=== PATIENT | female | born 1985 | race Caucasian/White ===

== ENCOUNTER 2016-10-30 23:01 | Emergency (ER) | payer OTHER ==
[~2016-10-30] VITALS: Ht 160 cm; Wt 63.5 kg
[~2016-10-30 23:01] MED LIST: DIPH25CA58 PO; PRED50TA PO; RANI150T6 PO
[2016-10-30 23:10] VITALS: BP 126/79
[2016-10-30] MEDS ORDERED: PRED20TA PO (23:26)
[2016-10-30] MEDS: DEXAMETHASONE SOD PHOS 10 MG/ML VIAL IM ONE (23:40)
--- NOTE | 2016-10-31 00:28 | ED.ADGEN ---
Past History Past Medical History: Sinusitis Past Surgical History: No Surgical History Alcohol Use: Rarely Drug Use: None Adult General HPI HPI Patient is a 31-year-old female presents emergency department after exposure to an epoxy on PERRLA tape. Patient is a known epoxy allergy. She states that she began to develop hives in the back of her neck shortly after the exposure. She took 2 Benadryl and his had no other symptoms since that time. Review of Systems Review of Systems Constitutional: Denies fever or chills [] Eyes: Denies change in visual acuity, redness, or eye pain [] HENT: Denies nasal congestion or sore throat [] Respiratory: Denies cough or shortness of breath [] Cardiovascular: No additional information not addressed in HPI [] GI: Denies abdominal pain, nausea, vomiting, bloody stools or diarrhea [] : Denies dysuria or hematuria [] Musculoskeletal: Denies back pain or joint pain [] Integument: Denies rash or skin lesions [] Neurologic: Denies headache, focal weakness or sensory changes [] Endocrine: Denies polyuria or polydipsia [] Current Medications Current Medications Current Medications Medications (Trade) Dose Ordered Sig/Gabrielle Start Time Stop Time Status Last Admin Dose Admin Dexamethasone Sodium Phosphate (Decadron) 10 mg 1X ONCE 10/30/16 23:45 10/30/16 23:46 DC 10/30/16 23:40 10 MG Allergies Allergies Allergies Coded Allergies Type Severity Reaction Last Updated Verified Sulfa (Sulfonamide Antibiotics) Allergy Severe Unknown 11/02/15 Yes Physical Exam Physical Exam Constitutional: Well developed, well nourished, no acute distress, non-toxic appearance. [] HENT: Normocephalic, atraumatic, bilateral external ears normal, oropharynx moist, no oral exudates, nose normal. [] Eyes: PERRLA, EOMI, conjunctiva normal, no discharge. [] Neck: Normal range of motion, no tenderness, supple, no stridor. [] Cardiovascular:Heart rate regular rhythm, no murmur [] Lungs & Thorax: Bilateral breath sounds clear to auscultation [] Abdomen: Bowel sounds normal, soft, no tenderness, no masses, no pulsatile masses. [] Skin: Warm, dry, no erythema, no rash. [] Back: No tenderness, no CVA tenderness. [] Extremities: No tenderness, no cyanosis, no clubbing, ROM intact, no edema. [] Neurologic: Alert and oriented X 3, normal motor function, normal sensory function, no focal deficits noted. [] Psychologic: Affect normal, judgement normal, mood normal. [] EKG EKG [] Radiology/Procedures Radiology/Procedures [] Course & Med Decision Making Course & Med Decision Making Pertinent Labs and Imaging studies reviewed. (See chart for details) Patient looks fairly well here in emergency department but noted ahead off any further reaction we did give her dose of Decadron. He will also be placed on steroids for the next several days will follow with her doctor as needed. She does have a prescription for EpiPen which she has yet to fill but tells me that she will do soon. [] Final Impression Final Impression Urticaria, allergic reaction [] Problems: Dragon Disclaimer Dragon Disclaimer This electronic medical record was generated, in whole or in part, using a voice recognition dictation system. JOHN GUERRA MD Oct 31, 2016 00:28
== END 2016-10-30 23:43 | disposition home or self-care (01) ==
LOC: ER 23:01
DX: L50.9 Urticaria, unspecified (principal); T78.49XA Other allergy, initial encounter; Z88.2 Allergy status to sulfonamides; X58.XXXA Exposure to other specified factors, initial encounter
CPT/HCPCS: 96372; 99283; J1100

== ENCOUNTER → 2016-12-03 | Outpatient (CLI) | payer BC, OTHER ==
[~2016-12-03] MED LIST changes: +PRED20TA PO
--- NOTE | 2016-12-03 11:14 | RAD ---
Right upper quadrant abdominal ultrasound History: Hemangioma. Comparison: Ultrasound abdomen 11/18/2011. Technique: Transabdominal ultrasound images are obtained. Findings: Visualized pancreas is unremarkable. Liver is normal in echogenicity. The liver again demonstrates a small mildly hyperechoic mass which measures 2.4 x 2.1 x 1.3 cm (previously 2.7 x 1.0 x 2.5 cm), unchanged. Gallbladder is without evidence of stone. There are a few small echogenic foci adherent to the wall measuring up to 3 mm, compatible with gallbladder polyps; given size, no dedicated follow-up is required. Common bile duct measures normally at 3 mm in diameter. The right kidney measures 11.1 cm in length and is without evidence of obstruction or stone. Visualized portions of the IVC have normal caliber. Impression: 1. Small mildly hyperechoic mass is again seen in the liver which is unchanged. Given patient's age, this is likely a benign entity such as hemangioma or focal fatty infiltration. 2. Very small gallbladder polyps.
== END | disposition home or self-care (01) ==
LOC: US 09:49
PROVIDERS: ATTEND Nurse Practitioner Family
DX: K82.4 Cholesterolosis of gallbladder (principal); D18.09 Hemangioma of other sites; R16.0 Hepatomegaly, not elsewhere classified
CPT/HCPCS: 76705

== ENCOUNTER 2018-09-11 21:54 | Emergency (ER) | payer OTHER ==
[~2018-09-11 21:54] MED LIST changes: +RANI150T21 PO; -RANI150T6 PO
--- NOTE | 2018-09-11 22:00 | ED.ADGEN ---
Past History Past Medical History: No Pertinent History Past Surgical History: No Surgical History Alcohol Use: None Drug Use: None Adult General Chief Complaint Chief Complaint ".. I am very allergic to glue ...hydrocarbons... I walked through my dad 's garage... and now I am wheezing.. rash... 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 Pt. has long hx of sensitivities with glue products that contain ethanediamine, silane, bis sebacate, decanedioic acid adhesives. (Gorilla glue, instant epoxies, commercial super glues etc).,. Pt. had multiple ED visit with severe on set Hive with minor exposure to these hydrocarbons. Pt. has extensive hives currently and wheezing. Pt. denies any changes in food or other possible exposures. Pt. has taken Benadryl at home. 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 No recent travel. No history immunosuppression. Patient does have albuterol at home. Review of Systems Review of Systems Constitutional: Denies fever or chills [] Eyes: Denies change in visual acuity, redness, or eye pain [] HENT: Denies nasal congestion or sore throat [] Respiratory: Wheezes Cardiovascular: No additional information not addressed in HPI [] GI: Denies abdominal pain, nausea, vomiting, bloody stools or diarrhea [] : Denies dysuria or hematuria [] Musculoskeletal: Denies back pain or joint pain [] Integument: Extensive hives Neurologic: Denies headache, focal weakness or sensory changes [] Endocrine: Denies polyuria or polydipsia [] All other systems were reviewed and found to be within normal limits, except as documented in this note. Family History Family History Noncontributory Current Medications Current Medications Current Medications Medications (Trade) Dose Ordered Sig/Gabrielle Start Time Stop Time Status Last Admin Dose Admin Albuterol Sulfate (Ventolin Hfa Inhaler) 60 puff STK-MED ONCE 09/11/18 22:10 09/11/18 22:13 DC Albuterol/ Ipratropium (Duoneb) 3 ml STK-MED ONCE 09/11/18 22:10 09/11/18 22:12 DC Doxepin HCl (SINEquan) 50 mg 1X ONCE 09/11/18 23:00 09/11/18 23:01 DC 09/11/18 22:49 50 MG Famotidine (Pepcid Vial) 20 mg 1X ONCE 09/11/18 22:15 09/11/18 22:17 DC 09/11/18 22:11 20 MG Methylprednisolone Acetate (DEPO-Medrol IM) 40 mg 1X ONCE 09/11/18 22:15 09/11/18 22:17 DC 09/11/18 22:11 40 MG See nursing for home meds Allergies Allergies Allergies Coded Allergies Type Severity Reaction Last Updated Verified Sulfa (Sulfonamide Antibiotics) Allergy Severe 09/11/18 Yes Physical Exam Physical Exam Constitutional: in acute distress, non-toxic appearance. [] HENT: Normocephalic, atraumatic, bilateral external ears normal, oropharynx moist, no oral exudates, nose normal. [] Eyes: PERRLA, EOMI, conjunctiva normal, no discharge. [] Neck: Normal range of motion, no tenderness, supple, no stridor. [] Cardiovascular: Tachycardia Heart rate regular rhythm, no murmur [] Lungs & Thorax: Bilateral breath sounds equal at apex with scattered wheezes on auscultation [] Abdomen: Bowel sounds normal, soft, no tenderness, no masses, no pulsatile masses. [] Skin: Warm, dry, extensive hives Back: No tenderness, no CVA tenderness. [] Extremities: No tenderness, no cyanosis, no clubbing, ROM intact, no edema. [] Neurologic: Alert and oriented X 3, normal motor function, normal sensory function, no focal deficits noted. [] Psychologic: Affect normal, judgement normal, mood normal. [] Current Patient Data Vital Signs Vital Signs Date Time Temp Pulse Resp B/P (MAP) Pulse Ox O2 Delivery O2 Flow Rate FiO2 09/11/18 22:03 98.5 121 20 95 Room Air EKG EKG [] Radiology/Procedures Radiology/Procedures [] Course & Med Decision Making Course & Med Decision Making Pertinent Labs and Imaging studies reviewed. (See chart for details) Take Zantac 150 twice a day. Take Benadryl 50 mg up 4 times a day. Use MDI 2 puffs 4 times a day or albuterol tx's. Follow-up primary care. Return if any concerns. For severe itching take Doxepin 50 up to 4 x day. This drug can be very sedating. Pt. at time discharge reports marked improvement. Sister will stay with her tonight. Return if any concerns. Follow up with primary. [] Final Impression Final Impression 1. Allergic reaction[]- Hydrocarbons- in epoxies. Dragon Disclaimer Dragon Disclaimer This electronic medical record was generated, in whole or in part, using a voice recognition dictation system. [employer] Disclaimer This chart was dictated in whole or in part using Voice Recognition software in a busy, high-work load, and often noisy Emergency Department environment. It may contain unintended and wholly unrecognized errors or omissions. 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 Hx. allergy to epoxy. Discharge Information Condition at Discharge: Improved, Stable Disposition/Orders: D/C to Home Dischare Medications Current Medications Methylprednisolone Acetate (DEPO-Medrol IM) 40 mg 1X ONCE IM Last administered on 09/11/18at 22:11; Admin Dose 40 MG; Start 09/11/18 at 22:15; Stop 09/11/18 at 22:17; Status DC Albuterol Sulfate (Ventolin Hfa Inhaler) 2 puff 1X ONCE INH ; Start 09/11/18 at 22:30; Stop 09/11/18 at 22:31; Status DC Albuterol/ Ipratropium (Duoneb) 3 ml 1X ONCE NEB Last administered on at 22:17; Admin Dose 3 ML; Start 09/11/18 at 22:30; Stop 09/11/18 at 22:31; Status DC Famotidine (Pepcid Vial) 20 mg 1X ONCE IVP Last administered on 09/11/18at 22:11 ; Admin Dose 20 MG; Start 2/2/19 at 22:15; Stop 09/11/18 at 22:17; Status DC Albuterol/ Ipratropium (Duoneb) 3 ml STK-MED ONCE .ROUTE ; Start 09/11/18 at 22: 10; Stop 09/11/18 at 22:12; Status DC Albuterol Sulfate (Ventolin Hfa Inhaler) 60 puff STK-MED ONCE .ROUTE ; Start 09/11/18 at 22:10; Stop 09/11/18 at 22:13; Status DC Doxepin HCl (SINEquan) 50 mg 1X ONCE PO Last administered on 09/11/18at 22:49; Admin Dose 50 MG; Start 09/11/18 at 23:00; Stop 09/11/18 at 23:01; Status DC Active Scripts Active Doxepin Hcl 50 Mg Capsule 50 Mg PO QIDPRN PRN Epipen 2-Erwin (Epinephrine) 0.3 Mg/0.3 Ml Auto.injct 0.3 Mg IJ PREOP 1X PRN Zantac (Ranitidine Hcl) 150 Mg Tablet 150 Mg PO BID 30 Days Prednisone 20 Mg Tablet 1 Tab PO BID Prednisone 50 Mg Tablet 1 Tab PO DAILY Zantac (Ranitidine Hcl) 150 Mg Tablet 150 Mg PO BID Reported Benadryl (Diphenhydramine Hcl) 25 Mg Capsule 50 Mg PO 1X PRN No Known Medications Prior To Admisstion (Info) Each 1 Each NEMO CAPPS MD Sep 11, 2018 22:00
[2018-09-11 22:03] VITALS: BP 142/94
[2018-09-11] MEDS ORDERED: ALBUTEROL SULFATE 8GM INHALER. ONE (22:10)
[2018-09-11] MEDS ORDERED: IPRATRPIUM/ALBUTEROL 0.5/2.5MG 3 ML NEBU. ONE (22:10)
[2018-09-11] MEDS ORDERED: methylPREDNISolone ACETATE 40 MG/ML VIAL. IM ONE (22:15)
[2018-09-11] MEDS ORDERED: FAMOTIDINE 20 MG/2 ML VIAL IVP ONE (22:15)
[2018-09-11] MEDS ORDERED: EPIN0.3A4 IJ (22:27)
[2018-09-11] MEDS ORDERED: RANI150T21 PO (22:27)
[2018-09-11] MEDS ORDERED: ALBUTEROL SULFATE 8GM INHALER. INH ONE (22:30)
[2018-09-11] MEDS ORDERED: IPRATRPIUM/ALBUTEROL 0.5/2.5MG 3 ML NEBU. NEB ONE (22:30)
[2018-09-11] MEDS ORDERED: DOXEPIN HCL 25 MG CAPSULE PO ONE (23:00)
[2018-09-11] MEDS ORDERED: DOXE50CA PO (23:01)
== END 2018-09-11 23:08 | disposition home or self-care (01) ==
LOC: ER 21:54
DX: T78.49XA Other allergy, initial encounter (principal); T50.995A Adverse effect of other drugs, medicaments and biological substances, initial encounter; Z88.2 Allergy status to sulfonamides; Y92.59 Other trade areas as the place of occurrence of the external cause
CPT/HCPCS: 94640; 96372; 96374; 99283; J1030; J3490; J7620

== ENCOUNTER → 2018-12-13 | Outpatient (CLI) | payer OTHER ==
[~2018-12-13] MED LIST changes: +DOXE50CA PO; +EPIN0.3A4 IJ
[2018-12-13 16:29] LABS: BASO # 0.1 x10^3/uL (0.0-0.2); BASO % 1 % (0-3); EOS # 0.1 x10^3/uL (0.0-0.7); EOS % 1 % (0-3); HEMATOCRIT 44.7 % (36.0-47.0); HEMOGLOBIN 15.3 g/dL (12.0-15.5); LYMPH # 2.1 x10^3/uL (1.0-4.8); LYMPH % 21 % (24-48); MEAN CORPUSCULAR HEMOGLOBIN 31 pg (25-35); MEAN CORPUSCULAR HGB CONC 34 g/dL (31-37); MEAN CORPUSCULAR VOLUME 91 fL (79-100); MONO # 0.6 x10^3/uL (0.0-1.1); MONO % 6 % (0-9); NEUT # 7.2 x10^3uL (1.8-7.7); NEUT % 72 % (31-73); PLATELET COUNT 353 x10^3/uL (140-400); RED BLOOD COUNT 4.94 x10^6/uL (3.50-5.40); RED CELL DISTRIBUTION WIDTH 12.9 % (11.5-14.5)
[2018-12-13 16:39] LABS: ALBUMIN 4.2 g/dL (3.4-5.0); CALCIUM 9.4 mg/dL (8.5-10.1); CREATININE 0.7 mg/dL (0.6-1.0); GFR 96.4; POTASSIUM 3.8 mmol/L (3.5-5.1); TOTAL BILIRUBIN 0.2 mg/dL (0.2-1.0)
[2018-12-13 16:58] LABS: ALBUMIN/GLOBULIN RATIO 1.1 (1.0-1.7)
[2018-12-13 17:32] LABS: SEDIMENTATION RATE 3 (0-25)
[2018-12-14 14:31] LABS: FREE T4 1.04 ng/dL (0.76-1.46); THYROID STIM HORMONE (TSH) 0.809 uIU/mL (0.358-3.740)
[2018-12-15 16:08] LABS: ANA INTERP Negative (.)
== END | disposition home or self-care (01) ==
LOC: PMG 15:44
PROVIDERS: ATTEND Physician Assistant Medical
DX: Z01.419 Encounter for gynecological examination (general) (routine) without abnormal findings (principal); T78.40XA Allergy, unspecified, initial encounter; F32.9 Major depressive disorder, single episode, unspecified; F90.9 Attention-deficit hyperactivity disorder, unspecified type
CPT/HCPCS: 36415; 80053; 84439; 84443; 84481; 85025; 85651; 86038

== ENCOUNTER 2019-07-03 10:42 | Emergency (ER) | payer BC, OTHER ==
[~2019-07-03 10:42] MED LIST changes: +RANI-376 PO; -RANI150T21 PO
[2019-07-03] MEDS ORDERED: IV NORMAL SALINE 1,000ML 1,000 ML IV SCH (10:51)
[2019-07-03] MEDS ORDERED: methylPREDNISolone SOD SUCC PF 125 MG/2 ML VIAL. IV ONE (11:00)
[2019-07-03] MEDS ORDERED: FAMOTIDINE 20 MG/2 ML VIAL IVP ONE (11:00)
[2019-07-03] MEDS ORDERED: diphenhydrAMINE 50 MG/ML VIAL IV ONE (11:00)
[2019-07-03 11:16] VITALS: BP 118/95
[2019-07-03 11:19] LABS: BASO # 0.1 x10^3/uL (0.0-0.2); BASO % 1 % (0-3); EOS # 0.1 x10^3/uL (0.0-0.7); EOS % 1 % (0-3); HEMATOCRIT 45.9 % (36.0-47.0); HEMOGLOBIN 15.5 g/dL (12.0-15.5); LYMPH % 23 % (24-48); MEAN CORPUSCULAR HEMOGLOBIN 31 pg (25-35); MEAN CORPUSCULAR HGB CONC 34 g/dL (31-37); MEAN CORPUSCULAR VOLUME 91 fL (79-100); MONO % 8 % (0-9); NEUT % 68 % (31-73); PLATELET COUNT 404 x10^3/uL (140-400); RED BLOOD COUNT 5.08 x10^6/uL (3.50-5.40); RED CELL DISTRIBUTION WIDTH 12.9 % (11.5-14.5); WHITE BLOOD COUNT 13.2 x10^3/uL (4.0-11.0)
[2019-07-03 11:34] LABS: ALBUMIN 4.2 g/dL (3.4-5.0); ALBUMIN/GLOBULIN RATIO 1.2 (1.0-1.7); CALCIUM 8.9 mg/dL (8.5-10.1); CREATININE 0.8 mg/dL (0.6-1.0); GFR 82.6; TOTAL BILIRUBIN 0.5 mg/dL (0.2-1.0); TOTAL PROTEIN 7.7 g/dL (6.4-8.2)
[2019-07-03] MEDS ORDERED: METH4TAB2 PO (12:14)
--- NOTE | 2019-07-03 12:14 | PHYS DOC ---
Past History Past Medical History: Cancer Past Surgical History: Cancer Surgery Alcohol Use: None Drug Use: None Adult General Chief Complaint Chief Complaint: ALLERGIC REACTION HPI HPI Patient is a 33-year-old female who presents with report of allergic reaction. Patient states that she has had similar reactions in the past but she has never been able to identify the cause. She does indicate that she has an EpiPen but has not taken it. She states that symptoms started approximately 30 minutes ago and states that it started with a rash and now she feels like she has a sore throat and is getting some shortness of breath/difficulty breathing. She denies any chest pain. She does indicate that she has itching all over.[] Review of Systems Review of Systems Constitutional: Denies fever or chills [] HENT: Positive dysphagia and sore throat [] Respiratory: Complains of shortness of breath [] Cardiovascular: No additional information not addressed in HPI [] Musculoskeletal: Denies back pain or joint pain [] Integument: Positive urticarial rash[] Neurologic: Denies headache, focal weakness or sensory changes [] Current Medications Current Medications Current Medications Medications (Trade) Dose Ordered Sig/Gabrielle Start Time Stop Time Status Last Admin Dose Admin Diphenhydramine HCl (Benadryl) 50 mg 1X ONCE 07/03/19 11:00 07/03/19 11:01 DC 07/03/19 11:04 50 MG Epinephrine HCl (EPINEPHrine AMPULE) 0.3 mg 1X ONCE 07/03/19 11:00 07/03/19 11:01 DC 07/03/19 11:05 0.3 MG Famotidine (Pepcid Vial) 20 mg 1X ONCE 07/03/19 11:00 07/03/19 11:01 DC 07/03/19 11:04 20 MG Methylprednisolone Sodium Succinate (SOLU-Medrol 125MG VIAL) 125 mg 1X ONCE 07/03/19 11:00 07/03/19 11:01 DC 07/03/19 11:04 125 MG Sodium Chloride 1,000 ml @ 1,000 mls/hr Q1H 07/03/19 10:51 07/03/19 11:50 DC 07/03/19 11:05 1,000 MLS/HR Allergies Allergies Allergies Coded Allergies Type Severity Reaction Last Updated Verified Sulfa (Sulfonamide Antibiotics) Allergy Severe 09/11/18 Yes Physical Exam Physical Exam Constitutional: Well developed, well nourished, no acute distress, non-toxic appearance. [] HENT: Normocephalic, atraumatic, bilateral external ears normal, oropharynx moist, no oral exudates, nose normal. [] Eyes: PERRLA, EOMI, conjunctiva normal, no discharge. [] Neck: Normal range of motion, no tenderness, supple, no stridor. [] Cardiovascular: Regular rate and rhythm[] Lungs & Thorax: Bilateral breath sounds clear to auscultation [] Skin: There is a diffuse urticarial rash. [] Extremities: No tenderness, no cyanosis, no clubbing, ROM intact, no edema. [] Current Patient Data Vital Signs Vital Signs Date Time Temp Pulse Resp B/P (MAP) Pulse Ox O2 Delivery O2 Flow Rate FiO2 07/03/19 11:16 93 20 95 Room Air Lab Results Laboratory Tests Test 07/03/19 10:55 White Blood Count 13.2 x10^3/uL (4.0-11.0) H Red Blood Count 5.08 x10^6/uL (3.50-5.40) Hemoglobin 15.5 g/dL (12.0-15.5) Hematocrit 45.9 % (36.0-47.0) Mean Corpuscular Volume 91 fL (79-100) Mean Corpuscular Hemoglobin 31 pg (25-35) Mean Corpuscular Hemoglobin Concent 34 g/dL (31-37) Red Cell Distribution Width 12.9 % (11.5-14.5) Platelet Count 404 x10^3/uL (140-400) H Neutrophils (%) (Auto) 68 % (31-73) Lymphocytes (%) (Auto) 23 % (24-48) L Monocytes (%) (Auto) 8 % (0-9) Eosinophils (%) (Auto) 1 % (0-3) Basophils (%) (Auto) 1 % (0-3) Neutrophils # (Auto) 9.0 x10^3uL (1.8-7.7) H Lymphocytes # (Auto) 3.0 x10^3/uL (1.0-4.8) Monocytes # (Auto) 1.0 x10^3/uL (0.0-1.1) Eosinophils # (Auto) 0.1 x10^3/uL (0.0-0.7) Basophils # (Auto) 0.1 x10^3/uL (0.0-0.2) Sodium Level 143 mmol/L (136-145) Potassium Level 4.0 mmol/L (3.5-5.1) Chloride Level 107 mmol/L (98-107) Carbon Dioxide Level 24 mmol/L (21-32) Anion Gap 12 (6-14) Blood Urea Nitrogen 12 mg/dL (7-20) Creatinine 0.8 mg/dL (0.6-1.0) Estimated GFR (Cockcroft-Gault) 82.6 BUN/Creatinine Ratio 15 (6-20) Glucose Level 113 mg/dL (70-99) H Calcium Level 8.9 mg/dL (8.5-10.1) Total Bilirubin 0.5 mg/dL (0.2-1.0) Aspartate Amino Transferase (AST) 24 U/L (15-37) Alanine Aminotransferase (ALT) 19 U/L (14-59) Alkaline Phosphatase 72 U/L (46-116) Total Protein 7.7 g/dL (6.4-8.2) Albumin 4.2 g/dL (3.4-5.0) Albumin/Globulin Ratio 1.2 (1.0-1.7) EKG EKG [] Radiology/Procedures Radiology/Procedures [] Course & Med Decision Making Course & Med Decision Making Pertinent Labs and Imaging studies reviewed. (See chart for details) [] Dragon Disclaimer Dragon Disclaimer This electronic medical record was generated, in whole or in part, using a voice recognition dictation system. Departure Departure: Impression: Primary Impression: Allergic reaction Disposition: 01 HOME, SELF-CARE Condition: STABLE Referrals: YOON HANSON (PCP) Patient Instructions: Allergies, Generic, Hives Scripts Methylprednisolone (MEDROL) 4 Mg Tab.ds.pk 1 PKG PO UD for rash, #1 PKG Prov: RADHA WADE Jr. DO 07/03/19 Problem Qualifiers Primary Impression: Allergic reaction Encounter type: initial encounter Qualified Codes: T78.40XA - Allergy, unspecified, initial encounter RADHA WADE Jr. DO Jul 03, 2019 12:14
== END 2019-07-03 12:36 | disposition home or self-care (01) ==
LOC: ER 10:42
DX: T78.40XA Allergy, unspecified, initial encounter (principal); L50.9 Urticaria, unspecified; R06.02 Shortness of breath; J02.9 Acute pharyngitis, unspecified; R13.10 Dysphagia, unspecified; Z88.2 Allergy status to sulfonamides; X58.XXXA Exposure to other specified factors, initial encounter
CPT/HCPCS: 36415; 80053; 85025; 96372; 96374; 96375; 99284; J0171; J1200; J2930; J3490; J7030

== ENCOUNTER 2021-12-01 00:43 | Emergency (ER) | payer BC ==
[~2021-12-01] VITALS: Ht 167.6 cm; Wt 72.5 kg
[~2021-12-01 00:43] MED LIST changes: +METH4TAB2 PO
--- NOTE | 2021-12-01 01:03 | PHYS DOC ---
Past History Past Medical History: Cancer Past Surgical History: Cancer Surgery Alcohol Use: None Drug Use: None General Adult EDM: Chief Complaint: ALLERGIC REACTION HPI: HPI: "...I ve had another break of hives.. some amilcar of allergic reaction.. we have not figured out what has caused these reactions... Patient is a 36 year old female who presents with above hx and complaints of allergic reaction. Patient has diffuse hives over her body. Patient denies any changes in recent meds. No history of changes in foods. No history of specific triggering events for the these recurrent episodes of allergic reaction and hives. Patient states this episode is not as severe as previous episodes. Patient concerned though maybe get worse. Patient does have EpiPen's. Patient states she has been seen previously for similar condition in the emergency department. Patient did take 25 mg of Benadryl before arrival. Patient normally follows with [facility] for care. Review of Systems: Review of Systems: Constitutional: Denies fever or chills Eyes: Denies change in visual acuity HENT: Denies nasal congestion or sore throat Respiratory: Denies cough or shortness of breath Cardiovascular: Denies chest pain or edema GI: Denies abdominal pain, nausea, vomiting, bloody stools or diarrhea : Denies dysuria Musculoskeletal: Denies back pain or joint pain Integument: Complains of diffuse hives and itching Neurologic: Denies headache, focal weakness or sensory changes Endocrine: Denies polyuria or polydipsia Lymphatic: Denies swollen glands Psychiatric: Denies depression or anxiety Family History: Family History: Noncontributory to presentation. Current Medications: Current Meds: See nursing for home meds Allergies: Allergies: Allergies Coded Allergies Type Severity Reaction Last Updated Verified Sulfa (Sulfonamide Antibiotics) Allergy Severe 09/11/18 Yes Physical Exam: PE: Constitutional: Moderate acute distress, non-toxic appearance. [] HENT: Normocephalic, atraumatic, bilateral external ears normal, oropharynx moist, no oral exudates, nose swollen turbinates clear rhinorrhea.] Eyes: PERRLA, EOMI, conjunctiva normal, no discharge. [] Neck: Normal range of motion, no tenderness, supple, no stridor. [] Cardiovascular:Heart rate regular rhythm, no murmur [] Lungs & Thorax: Bilateral breath sounds equal apex with few scattered wheezes on auscultation [] Abdomen: Bowel sounds normal, soft, no tenderness, no masses, no pulsatile masses. [] Skin: Warm, dry, no erythema, extensive hives. Back: No tenderness, no CVA tenderness. [] Extremities: No tenderness, no cyanosis, no clubbing, ROM intact, no edema. [] Neurologic: Alert and oriented X 3, normal motor function, normal sensory function, no focal deficits noted. [] Psychologic: Affect anxious,, judgement normal, mood normal. [] EKG: EKG: [] Radiology/Procedures: Radiology/Procedures: [] Heart Score: C/O Chest Pain: N/A Risk Factors: Risk Factors: DM, Current or recent (<one month) smoker, HTN, HLP, family history of CAD, obesity. Risk Scores: Score 0 - 3: 2.5% MACE over next 6 weeks - Discharge Home Score 4 - 6: 20.3% MACE over next 6 weeks - Admit for Clinical Observation Score 7 - 10: 72.7% MACE over next 6 weeks - Early Invasive Strategies Course & Med Decision Making: Course & Med Decision Making Pertinent Labs and Imaging studies reviewed. (See chart for details) Patient received additional Benadryl 50 mg. Pepcid 20 mg, Solu-Medrol 125, and Ventolin treatments. Patient did receive 1 dose of milk of mag. Patient's hives gradually resolved during ED stay. Patient follow-up primary care. Patient continue prednisone 50 daily for 5 days. Patient take Pepcid 20 mg twice a day for 10 days. Use MDI 2 puffs 4 times a day. Attempted identify c ause of her allergic reaction. Consider any foods that may have sulfa as a preservative agent. Return if any concerns. Follow-up with primary. Impression: 1.Allergic Reaction 2. Hives [] Dragon Disclaimer: Dragon Disclaimer: This electronic medical record was generated, in whole or in part, using a voice recognition dictation system. Departure Departure: Referrals: YOON HANSON (PCP) Scripts Famotidine (PEPCID) 20 Mg Tablet 1 TAB PO BID for allergy for 10 Days, #20 TAB 3 Refills Prov: NEMO GALVEZ MD 12/01/21 Prednisone (PREDNISONE) 50 Mg Tablet 50 MG PO DAILY for allergy for 5 Days, #5 TAB Prov: NEMO GALVEZ MD 12/01/21 Dragon Disclaimer This chart was dictated in whole or in part using Voice Recognition software in a busy, high-work load, and often noisy Emergency Department environment. It may contain unintended and wholly unrecognized errors or omissions. Dragon Disclaimer This chart was dictated in whole or in part using Voice Recognition software in a busy, high-work load, and often noisy Emergency Department environment. It may contain unintended and wholly unrecognized errors or omissions. NEMO GALVEZ MD Dec 01, 2021 01:03
[2021-12-01] MEDS ORDERED: FAMOTIDINE 20 MG/2 ML VIAL IVP ONE (01:30)
[2021-12-01] MEDS ORDERED: IV RINGERS SOLUTION,LACTATED 1,000 ML IV ONE (01:30)
[2021-12-01] MEDS ORDERED: MAGNESIUM HYDROXIDE 2,400 MG/30 ML ORAL.SUSP. PO ONE (01:30)
[2021-12-01] MEDS ORDERED: methylPREDNISolone SOD SUCC PF 125 MG/2 ML VIAL. IV ONE (01:30)
[2021-12-01] MEDS ORDERED: diphenhydrAMINE 50 MG/ML VIAL IVP ONE (01:30)
[2021-12-01] MEDS ORDERED: ALBUTEROL SULFATE 8GM INHALER. INH ONE (01:30)
[2021-12-01] MEDS ORDERED: FAMO-63 PO (03:07)
[2021-12-01] MEDS ORDERED: PRED50TA PO (03:07)
[2021-12-01 04:09] VITALS: BP 120/71
== END 2021-12-01 04:07 | disposition home or self-care (01) ==
LOC: ER 00:53
DX: T78.40XA Allergy, unspecified, initial encounter (principal); L50.9 Urticaria, unspecified; Z88.2 Allergy status to sulfonamides; X58.XXXA Exposure to other specified factors, initial encounter
CPT/HCPCS: 94640; 96361; 96374; 96375; 99284; J1200; J2930; J3490; J7120; 94664